=== PATIENT | male | born 1965 | race Caucasian/White ===

== ENCOUNTER 2016-09-23 03:30 | Emergency (ER) | payer BC ==
[2016-09-23 03:47] VITALS: TEMP 98
--- NOTE | 2016-09-23 04:32 | ED ---
Weakness HPI - General Chief complaint: Weakness Stated complaint: fatigue,weakness Time Seen by Provider: 09/23/16 03:58 Source: patient, RN notes reviewed Mode of arrival: ambulatory Limitations: no limitations - History of Present Illness Initial comments: This patient is a 51-year-old man who presents to be evaluated for a feeling of generalized weakness and fatigue. The patient states he woke up for work number of hours ago and noticed that he was not feeling well. He states he felt like he wanted to go right back to bed. The patient states that he went to work tonight but just continued to feel run down so he left work and came here. He is complaining of fatigue and also generalized weakness. Patient denies any focal weakness. He is denying any other strokelike symptoms, including no change in sensation, speech, vision or hearing. He denies focal weakness. MD Complaint: generalized weakness, lack of energy -: hour(s) Location: generalized Severity: moderate Consistency: constant Improves with: none Worsens with: none Associated Symptoms: denies other symptoms - Related Data Home Medications Medication Instructions Recorded Confirmed Albuterol Inhaler [Ventolin 2 puff INHALATION RT-TID PRN 04/09/14 04/22/16 Inhaler] Escitalopram [Lexapro] 20 mg PO HS 04/09/14 04/22/16 Gabapentin [Neurontin] 800 mg PO BID 04/09/14 04/22/16 Insulin Glargine [Lantus] 72 unit SQ HS 04/09/14 04/22/16 Naproxen Sodium [Aleve] 220 mg PO TID PRN 04/09/14 04/22/16 buPROPion XL [Wellbutrin XL] 300 mg PO HS 04/09/14 04/22/16 metFORMIN HCL [Glucophage] 1,000 mg PO QAM 04/09/14 04/22/16 Atorvastatin [Lipitor] 10 mg PO DAILY 06/17/14 04/22/16 metFORMIN HCL [Glucophage] 500 mg PO HS 06/17/14 04/22/16 Insulin Lispro [humaLOG] 0 units SQ AC-TID 01/03/15 04/22/16 Hydrochlorothiazide (Unknown Dose) 1 tab PO DAILY 04/22/16 04/22/16 Moexipril (Unknown Dose) 1 tab PO DAILY 04/22/16 04/22/16 Previous Rx's Medication Instructions Recorded Azithromycin [Zithromax Tri-Jaden] 500 mg PO DAILY #3 tab 04/22/16 predniSONE 40 mg PO DAILY #8 tab 04/22/16 Allergies Allergy/AdvReac Type Severity Reaction Status Date / Time Penicillins Allergy Intermediate Rash/Hives Verified 09/23/16 03:47 Review of Systems ROS Statement: Those systems with pertinent positive or pertinent negative responses have been documented in the HPI. ROS Other: All systems not noted in ROS Statement are negative. Constitutional: Reports: weakness. Denies: fever, chills Eyes: Denies: vision change ENT: Denies: hearing loss Respiratory: Denies: cough, dyspnea Cardiovascular: Denies: chest pain, dyspnea on exertion, orthopnea, edema, syncope Gastrointestinal: Denies: abdominal pain, vomiting, diarrhea, melena, hematochezia Genitourinary: Denies: dysuria, hematuria Musculoskeletal: Denies: back pain Skin: Denies: rash Neurological: Reports: weakness (Generalized). Denies: headache, numbness, paresthesias, confusion Past Medical History Past Medical History: Asthma, Diabetes Mellitus, Hypertension, Pneumonia, Prostate Disorder, Thyroid Disorder Additional Past Medical History / Comment(s): Hypothyroidism, chronic back pain , left knee pain History of Any Multi-Drug Resistant Organisms: MRSA Date of last positivie culture/infection: 2011 MDRO Source:: Groin Past Surgical History: Appendectomy Additional Past Surgical History / Comment(s): 06/25/[address] RODRIGUEZ. Back injections Past Anesthesia/Blood Transfusion Reactions: No Reported Reaction Additional Past Anesthesia/Blood Transfusion Reaction / Comment(s): STATES "MOTHER HAD ANAPHYLACTIC REACTION TO ANESTHESIA" Past Psychological History: Depression Smoking Status: Never smoker Past Alcohol Use History: Occasional Past Drug Use History: None Reported - Past Family History Mother Family Medical History: Cancer General Exam Limitations: no limitations General appearance: alert, in no apparent distress, obese Head exam: Present: atraumatic, normocephalic Eye exam: Present: normal appearance. Absent: scleral icterus, conjunctival injection Neck exam: Present: normal inspection, full ROM. Absent: meningismus Respiratory exam: Present: normal lung sounds bilaterally. Absent: respiratory distress, wheezes, rales, rhonchi, stridor Cardiovascular Exam: Present: regular rate, normal rhythm, normal heart sounds. Absent: systolic murmur, diastolic murmur, rubs, gallop GI/Abdominal exam: Present: soft. Absent: distended, tenderness, guarding, rebound, mass Extremities exam: Present: normal inspection, normal capillary refill. Absent: pedal edema, calf tenderness Back exam: Present: normal inspection. Absent: CVA tenderness (R), CVA tenderness (L) Neurological exam: Present: alert, oriented X3, CN II-XII intact, normal gait. Absent: motor sensory deficit Skin exam: Present: warm, dry, intact, normal color. Absent: rash Course Vital Signs 09/23/16 03:45 Temperature 98.0 F Pulse Rate 76 Respiratory 20 Rate Blood Pressure 185/91 O2 Sat by Pulse 97 Oximetry EKG Findings - EKG Results: EKG: interpreted by MARGARET DOMINGO, sinus rhythm (Rate 71 bpm), normal axis, normal QRS, normal ST/T Medical Decision Making - Lab Data Result diagrams: 09/23/16 04:50 09/23/16 04:50 Lab Results 09/23/16 09/23/16 09/23/16 Range/Units 04:50 04:50 05:00 WBC 6.9 (3.8-10.6) k/uL RBC 5.58 (4.30-5.90) m/uL Hgb 15.7 (13.0-17.5) gm/dL Hct 47.6 (39.0-53.0) % MCV 85.3 (80.0-100.0) fL MCH 28.1 (25.0-35.0) pg MCHC 33.0 (31.0-37.0) g/dL RDW 13.5 (11.5-15.5) % Plt Count 215 (150-450) k/uL Neutrophils % 68 % Lymphocytes % 21 % Monocytes % 5 % Eosinophils % 3 % Basophils % 0 % Neutrophils # 4.7 (1.3-7.7) k/uL Lymphocytes # 1.5 (1.0-4.8) k/uL Monocytes # 0.4 (0-1.0) k/uL Eosinophils # 0.2 (0-0.7) k/uL Basophils # 0.0 (0-0.2) k/uL Sodium 137 (137-145) mmol/L Potassium 5.7 H (3.5-5.1) mmol/L Chloride 103 (98-107) mmol/L Carbon Dioxide 24 (22-30) mmol/L Anion Gap 10 mmol/L BUN 19 (9-20) mg/dL Creatinine 0.70 (0.66-1.25) mg/dL Est GFR (MDRD) Af Amer >60 (>60 ml/min/1.73 sqM) Est GFR (MDRD) Non-Af >60 (>60 ml/min/1.73 sqM) Glucose 189 H (74-99) mg/dL Calcium 8.9 (8.4-10.2) mg/dL Total Bilirubin 1.6 H (0.2-1.3) mg/dL AST 52 (17-59) U/L ALT 46 (21-72) U/L Alkaline Phosphatase 67 (38-126) U/L Total Protein 7.7 (6.3-8.2) g/dL Albumin 4.1 (3.5-5.0) g/dL Urine Color Yellow Urine Appearance Clear (Clear) Urine pH 6.5 (5.0-8.0) Ur Specific [place] 1.018 (1.001-1.035) Urine Protein 2+ H (Negative) Urine Glucose (UA) 4+ H (Negative) Urine Ketones Negative (Negative) Urine Blood Trace H (Negative) Urine Nitrate Negative (Negative) Urine Bilirubin Negative (Negative) Urine Urobilinogen 4.0 (<2.0) mg/dL Ur Leukocyte Esterase Negative (Negative) Urine WBC <1 (0-5) /hpf Ur Squamous Epith Cells 3 (0-4) /hpf Urine Mucus Rare H (None) /hpf Disposition Clinical Impression: Diabetes mellitus, Fatigue, Hyperglycemia Narrative: Suspected obstructive sleep apnea Disposition: HOME SELF-CARE Condition: Fair Instructions: Fatigue (ED), Hyperglycemia, Non-Diabetic (ED) Additional Instructions: As we discussed, follow-up with your physician to have the sleep study arranged , and also to have your potassium rechecked. Return here if your symptoms worsen in anyway or if any of the symptoms discussed develop. Referrals: Farideh Grady MD [Primary Care Provider] - 1-2 days
[2016-09-23 05:02] LABS: Basophils % (A) 0 %; CH 28.4; CHCM 33.4; Eosinophils # (A) 0.2 k/uL (0-0.7); Eosinophils % (A) 3 %; HCT 47.6 % (39.0-53.0); HDW 2.88; HGB 15.7 gm/dL (13.0-17.5); Luc # (Auto) 0.08; Luc % (Auto) 1; Lymphocytes # (A) 1.5 k/uL (1.0-4.8); Lymphocytes % (A) 21 %; MCH 28.1 pg (25.0-35.0); MCV 85.3 fL (80.0-100.0); Mean Platelet Volume 7.3; Monocytes # (A) 0.4 k/uL (0-1.0); Monocytes % (A) 5 %; Neutrophils # (A) 4.7 k/uL (1.3-7.7); Neutrophils % (A) 68 %; RBC 5.58 m/uL (4.30-5.90); RDW 13.5 % (11.5-15.5); WBC 6.9 k/uL (3.8-10.6); WBC (Perox) 7.33
[2016-09-23 05:12] LABS: Appearance,Urine Clear (Clear); Bilirubin,Urine Negative (Negative); Glucose,Urine (UA) 4+ (Negative); Ketones,Urine Negative (Negative); Leukocyte Esterase,Urine Negative (Negative); Mucus,Urine Rare /hpf; Nitrite,Urine Negative (Negative); PH, Urine 6.5 (5.0-8.0); Particle Count 1198; Protein,Urine 2+ (Negative); Specific Gravity,Urine 1.018 (1.001-1.035); Squamous Epithelial Cell,Urine 3 /hpf (0-4); UA Billing (MACRO vs. MICRO) MICRO; WBC,Urine <1 /hpf (0-5)
[2016-09-23 05:13] LABS: ALT 46 U/L (21-72); AST 52 U/L (17-59); Alkaline Phosphatase 67 U/L (38-126); Anion Gap 10 mmol/L; Blood Urea Nitrogen 19 mg/dL (9-20); Calcium 8.9 mg/dL (8.4-10.2); Carbon Dioxide 24 mmol/L (22-30); Chloride 103 mmol/L (98-107); Glucose 189 mg/dL (74-99); Non-African American GFR(MDRD) >60 (>60 ml/min/1.73 sqM); Sodium 137 mmol/L (137-145); Total Bilirubin 1.6 mg/dL (0.2-1.3); Total Protein 7.7 g/dL (6.3-8.2)
[2016-09-23 05:14] LABS: Potassium 5.7 mmol/L (3.5-5.1)
[2016-09-23 05:52] VITALS: BP 146/72; PULSE 68; RESP 18
== END 2016-09-23 05:51 | disposition home or self-care (01) ==
LOC: EC 03:30
DX: E11.65 Type 2 diabetes mellitus with hyperglycemia (principal); J45.909 Unspecified asthma, uncomplicated; I10 Essential (primary) hypertension; G89.29 Other chronic pain; M25.562 Pain in left knee; F32.9 Major depressive disorder, single episode, unspecified; Z87.01 Personal history of pneumonia (recurrent); Z79.4 Long term (current) use of insulin; Z79.899 Other long term (current) drug therapy; Z88.0 Allergy status to penicillin
CPT/HCPCS: 36415; 80053; 81001; 85025; 93005; 99285

== ENCOUNTER → 2019-11-04 | Day surgery (SDC) | payer BC ==
[2019-10-31 18:17] VITALS: BMI 47.5
[~2019-11-04] MED LIST: LACTATED RINGERS 1,000 ML IV SCH; LIDOCAINE 1% (10MG/ML) FOR IV START INTRADERMA PRN; PROPOFOL 10 MG/ML 20 ML VIAL IV ONE
[2019-11-04 09:12] VITALS: TEMP 98.8
[2019-11-04 09:26] LABS: Glucose,Whole Blood 153 mg/dL (75-99)
--- NOTE | 2019-11-04 10:42 | P.PCN ---
Date of Procedure: 11/04/19 Description of Procedure: BRIEF HISTORY: Patient is a 54-year-old male presenting for outpatient colonoscopy for screening for malignant neoplasm of the colon. No prior colonoscopies reported. No change in bowel habits, blood per rectum or abdominal pain reported. PROCEDURE PERFORMED: Colonoscopy with polypectomy. PREOPERATIVE DIAGNOSIS: Screening for malignant neoplasm of the colon, no prior colonoscopies reported. ESTIMATED BLOOD LOSS: Minimal. IV sedation per Anesthesia. PROCEDURE: After informed consent was obtained, the patient, was brought into the endoscopy unit. IV sedation was administered by Anesthesia under continuous monitoring. Digital rectal examination was normal. Initially the Olympus CF-190 flexible video colonoscope was then inserted in the rectum, gradually advanced into the cecum without any difficulty. Careful examination was performed as the scope was gradually being withdrawn. Ileocecal valve and the appendiceal orifice were visualized and appeared normal. Prep was good. Mucosa of the cecum, ascending colon, transverse colon, descending colon, sigmoid colon, and rectum appeared normal. 2 polyps removed from the sigmoid colon measuring 6 mm and 3 mm in size with cold snare polypectomy. Sessile 1 cm ascending colon polyp removed with cold snare polypectomy. 2 polyps measuring 5 mm and 3 mm in size removed from the cecum with cold snare polypectomy. Retroflexion was performed in the rectum and no lesions were seen. The patient tolerated the procedure well. IMPRESSION: 5 polyps removed with cold snare polypectomy, 2 from the cecum, one from the ascending colon and 2 from the sigmoid colon. Otherwise normal-appearing colon from rectum to cecum. RECOMMENDATIONS: Findings of this examination were discussed with the patient and his . Okay to resume medications. Okay to resume diet. Await pathology from polypectomies. Would recommend repeat colonoscopy in 3 years pending pathology from polypectomies.
[2019-11-04 10:45] VITALS: RESP 16
[2019-11-04 10:59] VITALS: BP 139/71; PULSE 76
== END ==
LOC: ORWHC2ENDO 08:52
PROVIDERS: ATTEND Internal Medicine
DX: Z12.11 Encounter for screening for malignant neoplasm of colon (principal); D12.5 Benign neoplasm of sigmoid colon; D12.2 Benign neoplasm of ascending colon; D12.0 Benign neoplasm of cecum; I10 Essential (primary) hypertension; E11.9 Type 2 diabetes mellitus without complications; F32.9 Major depressive disorder, single episode, unspecified; E66.01 Morbid (severe) obesity due to excess calories; Z88.0 Allergy status to penicillin; Z88.2 Allergy status to sulfonamides; Z79.4 Long term (current) use of insulin; Z79.899 Other long term (current) drug therapy; Z90.49 Acquired absence of other specified parts of digestive tract; Z98.41 Cataract extraction status, right eye; Z98.42 Cataract extraction status, left eye; Z98.890 Other specified postprocedural states; Z68.42 Body mass index [BMI] 45.0-49.9, adult
CPT/HCPCS: 88305; 45385; J2704

== ENCOUNTER 2021-01-22 01:14 | Emergency (ER) | payer BC, MEDICARE ==
[2021-01-22 01:19] VITALS: TEMP 98.8
[2021-01-22] MEDS ORDERED: ALBUTEROL NEB (CONC) 2.5 MG/0.5 ML INHALATION STA (01:39)
[2021-01-22] MEDS ORDERED: IPRATROPIUM-ALBUTEROL 3 ML NEB INHALATION STA (01:39)
[2021-01-22] MEDS ORDERED: predniSONE 20 MG TAB PO STA (01:39)
--- NOTE | 2021-01-22 02:19 | ED ---
SOB HPI - General Chief Complaint: Shortness of Breath Stated Complaint: SOB, fever Time Seen by Provider: 01/22/21 01:22 Source: patient Mode of arrival: wheelchair Limitations: no limitations - History of Present Illness Initial Comments: 55 year-old male patient presents to the emergency department for evaluation of shortness of breath and cough. States symptoms have been present for the last few days. Reports some wheezing. States he has felt feverish. Does have history of asthma. Has been using his inhaler, last use 6 hours ago. Not taking any o ther medications. Reports sore throat and nasal congestion. Denies any chest pain. Denies leg pain or swelling. Has had complete Covid vaccination series. Patient denies any recent abdominal pain, nausea, vomiting, diarrhea, constipation, back pain, numbness, tingling, dizziness, weakness, hematuria, dysuria, urinary urgency, urinary frequency, headache, visual changes, or any other complaints. - Related Data Home Medications Medication Instructions Recorded Confirmed Albuterol Inhaler (Mhu) [Ventolin 2 puff INHALATION RT-TID PRN 04/09/14 11/04/19 Inhaler] Escitalopram [Lexapro] 20 mg PO DAILY 04/09/14 11/04/19 Gabapentin [Neurontin] 800 mg PO TID 04/09/14 11/04/19 Insulin Glargine [Lantus] 72 unit SQ HS 04/09/14 11/04/19 Naproxen Sodium [Aleve] 220 mg PO BID 04/09/14 11/04/19 buPROPion XL [Wellbutrin XL] 300 mg PO DAILY 04/09/14 11/04/19 Insulin Lispro [humaLOG] 45 units SQ AC-TID 01/03/15 11/04/19 Moexipril HCl [Univasc] 22.5 mg PO DAILY 10/31/19 11/04/19 Montelukast Sodium [Singulair] 20 mg PO DAILY 10/31/19 11/04/19 hydroCHLOROthiazide [Hydrodiuril] 25 mg PO DAILY 10/31/19 11/04/19 Previous Rx's Medication Instructions Recorded Albuterol Inhaler [Ventolin Hfa 2 puff INHALATION Q4-6H PRN #60 01/22/21 Inhaler] puff Azithromycin [Zithromax Z-pack (6 0 mg PO DIRECTED #6 tab 05/21/21 tabs)] predniSONE 50 mg PO DAILY #5 tablet 01/22/21 Allergies Allergy/AdvReac Type Severity Reaction Status Date / Time Penicillins Allergy Intermediate Rash/Hives Verified 01/22/21 01:17 bee venom protein (honey bee) Allergy Anaphylaxis Verified 01/22/21 01:17 Review of Systems ROS Statement: Those systems with pertinent positive or pertinent negative responses have been documented in the HPI. ROS Other: All systems not noted in ROS Statement are negative. Past Medical History Past Medical History: Asthma, Diabetes Mellitus, Hypertension, Musculoskeletal Disorder, Pneumonia, Prostate Disorder, Thyroid Disorder Additional Past Medical History / Comment(s): Hypothyroidism, resolved; hx chronic back pain, spinal stenosis, left knee pain (wears brace), kidney stones, BPH, testing for sleep apnea History of Any Multi-Drug Resistant Organisms: MRSA Date of last positivie culture/infection: 2011 MDRO Source:: Groin Past Surgical History: Appendectomy, Back Surgery Additional Past Surgical History / Comment(s): 06/25/14 Laminectomy, Discectomy L3-L5 by DR. RODRIGUEZ. Back injections, oral surgery. Ermias cataracts. Past Anesthesia/Blood Transfusion Reactions: No Reported Reaction, Family History of Problems w/ Anesthesia Additional Past Anesthesia/Blood Transfusion Reaction / Comment(s): STATES "MOTHER HAD ANAPHYLACTIC REACTION TO ANESTHESIA" Past Psychological History: Depression Smoking Status: Never smoker Past Alcohol Use History: Occasional Past Drug Use History: None Reported - Past Family History Mother Family Medical History: Cancer Additional Family Medical History / Comment(s): Small cell lung cancer General Exam Limitations: no limitations General appearance: alert, in no apparent distress, other (This is a well- developed, well-nourished adult male patient in no acute distress. Vital signs upon presentation are temperature 98.8F, pulse 116, respirations 18, blood pressure 119/73, pulse ox 97% on room air.) ENT exam: Present: normal exam, normal oropharynx, mucous membranes moist Respiratory exam: Present: wheezes (Expiratory wheezing noted in posterior lung leach.). Absent: respiratory distress, rales, rhonchi, stridor Cardiovascular Exam: Present: regular rate, normal rhythm, normal heart sounds. Absent: systolic murmur, diastolic murmur, rubs, gallop, clicks GI/Abdominal exam: Present: soft, normal bowel sounds. Absent: distended, tenderness, guarding, rebound, rigid Neurological exam: Present: alert, oriented X3, CN II-XII intact Psychiatric exam: Present: normal affect, normal mood Skin exam: Present: warm, dry, intact, normal color. Absent: rash Course Vital Signs 01/22/21 01/22/21 01/22/21 01:17 01:32 02:00 Temperature 98.8 F Pulse Rate 116 H 104 H 106 H Respiratory 18 20 Rate Blood Pressure 119/73 141/72 O2 Sat by Pulse 97 96 Oximetry 01/22/21 01/22/21 02:10 03:01 Temperature Pulse Rate 117 H 105 H Respiratory 18 Rate Blood Pressure 118/76 O2 Sat by Pulse 96 Oximetry Medical Decision Making - Medical Decision Making 55-year-old male patient presents to the emergency department today for evaluati on of cough, sputum production, shortness of breath. Physical examination did reveal some expiratory wheezing in the posterior lung leach. He was able to speak full sentences. Initial oxygen saturation is 97%. He is afebrile. Chest x-ray is negative. Tested negative for COVID-19. He was given a DuoNeb breathing treatment and dose of steroids. Upon reevaluation states he does feel much better. I did discuss findings and results with him. He will be discharged with prescription for azithromycin and prednisone. He is given an additional prescription for Ventolin inhaler. He is instructed to follow-up with his primary care physician for recheck in 1-2 days. He verbalizes understanding and agrees with this plan. Case discussed with my attending Dr. King. - Lab Data Lab Results 01/22/21 Range/Units 01:45 Coronavirus (PCR) Not Detected (Not Detectd) - Radiology Data Radiology results: report reviewed, image reviewed No acute cardio pulmonary process. Disposition Clinical Impression: Acute bronchitis Disposition: HOME SELF-CARE Condition: Good Instructions (If sedation given, give patient instructions): Acute Bronchitis (ED) Additional Instructions: Take medications as directed. Follow up with your primary care physician for further evaluation in 1-2 days. Return for any new, worsening, or concerning symptoms. Prescriptions: predniSONE 50 mg PO DAILY #5 tablet Albuterol Inhaler [Ventolin Hfa Inhaler] 2 puff INHALATION Q4-6H PRN #60 puff PRN Reason: Shortness Of Breath Azithromycin [Zithromax Z-pack (6 tabs)] 0 mg PO DIRECTED #6 tab Is patient prescribed a controlled substance at d/c from ED?: No Referrals: Farideh Grady MD [Primary Care Provider] - 1-2 days Time of Disposition: 02:49
--- NOTE | 2021-01-22 02:35 | XR ---
EXAM: XR Chest, 2 Views CLINICAL HISTORY: ITS.REASON XR Reason: Cough/sputum production TECHNIQUE: Frontal and lateral views of the chest. COMPARISON: No relevant prior studies available. FINDINGS: Lungs: No consolidation or mass. Pleural space: No effusion. Heart: No cardiomegaly. Bones/joints: No acute findings. IMPRESSION: No acute cardiopulmonary process.
[2021-01-22] MEDS ORDERED: AZITHROMYCIN 500 MG TAB PO STA (02:46)
[2021-01-22 03:02] VITALS: BP 118/76; PULSE 105; RESP 18
== END 2021-01-22 03:02 | disposition home or self-care (01) ==
LOC: EC 01:14
DX: J20.9 Acute bronchitis, unspecified (principal); E11.36 Type 2 diabetes mellitus with diabetic cataract; F32.9 Major depressive disorder, single episode, unspecified; I10 Essential (primary) hypertension; J45.909 Unspecified asthma, uncomplicated; N40.0 Benign prostatic hyperplasia without lower urinary tract symptoms; E03.9 Hypothyroidism, unspecified; Z79.4 Long term (current) use of insulin; Z79.52 Long term (current) use of systemic steroids; Z79.899 Other long term (current) drug therapy; Z87.442 Personal history of urinary calculi; Z80.1 Family history of malignant neoplasm of trachea, bronchus and lung; Z88.0 Allergy status to penicillin
CPT/HCPCS: 94640; 87635; 71046; 99284; J7512

== ENCOUNTER → 2022-06-23 | Outpatient (CLI) | payer MEDICARE ==
--- NOTE | 2022-06-23 18:07 | MR ---
EXAMINATION TYPE: MR lumbar spine wo/w con DATE OF EXAM: 06/23/2022 COMPARISON: NONE HISTORY: 57-year-old male Low back pain that radiates down both legs, history of surgery. Technique: Multiplanar, multisequence images of the lumbar spine were obtained before and after admin istration of 15 mL intravenous Gadavist gadolinium contrast. FINDINGS: Vertebral body heights are preserved and alignment is maintained. Moderate to severe disc/endplate degenerative change mid to lower lumbar spine with corresponding hyp ertrophic facet arthropathy. Levels of ligamentum flavum thickening are also present. There is associated edematous Modic type I endplate change towards the left at L4-L5. Scattered small endplate Schmorl's nodes are present throughout. There is a component of congenital spinal canal narrowing throughout the lumbar spine with AP canal d imension of 1.0 cm. This causes significant crowding of the visualized lower cord and cauda equina nerve roots. Cauda equina appears to terminate at the normal level. At T12-L1, mild congenital spinal canal narrowing. No significant neural foraminal stenosis. At L1-L2, mild disc bulges accentuates the mild spinal canal stenosis. Minimal inferior right neurofo raminal stenosis. At L2-L3, disc bulge and ligamentum flavum thickening accentuates the congenital spinal canal narrowi ng. There is overall moderate to severe spinal canal stenosis. Only minimal CSF signal is seen at thi s level. Moderate left greater than right neural foraminal stenosis. At L3-L4, congenital spinal canal stenosis with facet arthropathy. Changes result in moderate left gr eater than right neuroforaminal stenosis. At L4-L5, disc bulge and ligamentum flavum thickening, and hypertrophic facet arthropathy accentuates the mild congenital spinal canal stenosis. There is a severe left and moderate right neuroforaminal stenosis. At L5-S1, disc bulge and facet arthropathy accentuating the mild spinal canal stenosis. Changes resul t in severe right and mild left neural foraminal stenosis. No prevertebral or paravertebral soft tissue abnormally seen. No abnormal enhancement within the spinal canal. IMPRESSION: 1. Moderate to advanced disc/endplate degenerative change mid to lower lumbar spine with correspondin g ligamentum flavum thickening and hypertrophic facet arthropathy. There is associated edematous Vignesh c type I endplate change towards the left at L4-L5. 2. Changes are superimposed on a congenital spinal canal stenosis. [place] AP canal dimension of 1.0 c m. 3. Overall moderate to severe spinal canal stenosis at L2-L3. Only minimal CSF signal is seen at this level. 4. There is at least mild spinal canal stenosis at all other levels. This is accentuated at L1-L2, L4 -L5, and L5-S1 due to bulging disc. 5. Variable neuroforaminal stenoses as outlined above. There is severe narrowing on the left at L4-L5 and severe on the right at L5-S1.
== END | disposition home or self-care (01) ==
LOC: RADMRIMAIN 14:10
PROVIDERS: ATTEND Orthopaedic Surgery Orthopaedic Surgery of the Spine
DX: M47.817 Spondylosis without myelopathy or radiculopathy, lumbosacral region (principal); M48.07 Spinal stenosis, lumbosacral region; M99.74 Connective tissue and disc stenosis of intervertebral foramina of sacral region; M51.26 Other intervertebral disc displacement, lumbar region
CPT/HCPCS: 72158; A9585